=== PATIENT | male | born 1995 | race African-American/Black ===

== ENCOUNTER 2017-06-03 15:25 | Emergency (ER) | payer OTHER ==
[~2017-06-03] VITALS: Ht 182.9 cm; Wt 59.0 kg
[~2017-06-03 15:25] MED LIST: ALBUTEROL SULF8.5 GM INH; AZITHROMYCIN250 MG ORAL; BENADRYL A12.5 MG/5 ORAL; IBUPROFEN600 MG ORAL; PREDNISOLO15 MG/5 M1 PO; PROAIR HFA8.5 GM INH; VICODIN 5-5001 EACH ORAL
[2017-06-03 16:00] VITALS: BP 111/67
--- NOTE | 2017-06-03 16:03 | Emergency Room Report ---
History of Present Illness General Chief Complaint: Back Pain-No Injury Source: Patient Present Illness HPI 21 YO Male presents to the ED c/o right upper back and right side neck pain 9/ 10 in severity x 1 month. pt. is right hand dominant. pt. states pain is tight in nature. pt. denies appreciable trauma or fall. pt. states tenderness to the touch. pt states some times he will have similar pain in the upper left side of the back.Pt states his pain is both intermittent and constant lasting several days. pt. denies previous evaluation of his symptoms. denies pmhx. denies fevers, chills, rashes, or recent illness. Denies numbness tingling or loss of sensation or gross motor movements of the extremities, incontinence of bowel or bladder. Denies CP, Palpitations, LOC, AMS, dizziness, Changes in Vision, Sensation, paresthesias, or a sudden severe headache. Allergies: Coded Allergies: IBUPROFEN (Verified Allergy, Severe, Hives, 06/03/17) Patient History Past Medical History: see triage record Past Surgical History: none Pertinent Family History: none Immunizations: UTD Reviewed Nursing Documentation: PMH: Agreed, PSxH: Agreed Nursing Documentation-PMH Past Medical History: No History, Except For Hx Asthma: Yes Review of Systems All Other Systems: negative except mentioned in HPI Physical Exam Vital Signs Date Time Temp Pulse Resp B/P Pulse Ox O2 Delivery O2 Flow Rate FiO2 06/03/17 15:38 98.2 75 18 111/67 98 Room Air Sp02 EP Interpretation: reviewed, normal General Appearance: no apparent distress, alert, GCS 15, non-toxic Head: normocephalic, atraumatic Eyes: bilateral eye PERRL, bilateral eye normal inspection ENT: hearing grossly normal, normal pharynx, no angioedema, normal voice Neck: full range of motion, no bony tend, supple/symm/no masses, tender lateral - right lateral trapezius tenderness, no midline spinous process tenderness or obvious deformity. no bruises. Respiratory: lungs clear, normal breath sounds, speaking full sentences Cardiovascular #1: regular rate, rhythm Musculoskeletal: back normal, gait/station normal, normal range of motion, non- tender, tender - right lateral trapezius tenderness and thoracic paraspinal ttp , no midline spinous process tenderness or obvious deformity. no bruises. erythema or increased temperature to palpation, pt. has FROM of back , neck and right shoulder no muscular weakness. Neurologic: alert, oriented x3, responsive, motor strength/tone normal, sensory intact, speech normal Psychiatric: judgement/insight normal, memory normal, mood/affect normal Skin: normal color, no rash, warm/dry, well hydrated Medical Decision Making PA Attestation Dr. Diaz is my supervising Physician whom patient management has been discussed with. Diagnostic Impression: Primary Impression: Upper back pain on right side Additional Impression: Muscle strain ER Course 21 YO Male presents to the ED c/o right upper back and right side neck pain 9/ 10 in severity x 1 month. pt. is right hand dominant. pt. states pain is tight in nature. pt. denies appreciable trauma or fall. pt. states tenderness to the touch. pt states some times he will have similar pain in the upper left side of the back.Pt states his pain is both intermittent and constant lasting several days. pt. denies previous evaluation of his symptoms. denies pmhx. denies fevers, chills, rashes, or recent illness. Denies numbness tingling or loss of sensation or gross motor movements of the extremities, incontinence of bowel or bladder. Denies CP, Palpitations, LOC, AMS, dizziness, Changes in Vision, Sensation, paresthesias, or a sudden severe headache. Ddx considered but are not limited to Fracture, dislocation, contusion, Sprain/ Strain/Spasm. Vital signs: are WNL, pt. is afebrile H&PE are most consistent with muscular injury/ pain primarily in the right trapezius, no bony ttp on PE to warrant x-ray imaging at this time. pt. does not have weakness. I do not suspect an emergent condition at this time given HPI and pt. physical exam. ORDERS: non required at this time. --d/w pt. that he will be d/c with conservative treatment, and to follow up with a primary care provider for further evaluation. d/w pt. that if symptoms worsen or new symptoms appear to return to ED. otherwise with current presentation he is stable for close out patient follow up. DISCHARGE: At this time pt. is stable for d/c to home. Will provide printed patient care instructions, and any necessary prescriptions. Care plan and follow up instructions have been discussed with the patient prior to discharge. Last Vital Signs Date Time Temp Pulse Resp B/P Pulse Ox O2 Delivery O2 Flow Rate FiO2 06/03/17 15:38 98.2 75 18 111/67 98 Room Air Disposition: HOME, SELF-CARE Condition: Stable Scripts Cyclobenzaprine Hcl* (FLEXERIL*) 10 Mg Tablet 10 MG ORAL THREE TIMES A DAY for 7 Days, #21 TAB Prov: Terese Devlin 06/03/17 Acetaminophen* (TYLENOL EXTRA STRENGTH*) 500 Mg Tablet 500 MG ORAL Q6H, #30 TAB 0 Refills Prov: Terese Devlin 06/03/17 Patient Instructions: Muscle Pain, Adult Additional Instructions: Take medications as directed. Follow up with a Primary Care Provider in 3-5 days, even if your symptoms have resolved. --Please review list of primary care clinics, if you do not already have a primary care provider Return sooner to ED if new symptoms occur, or current symptoms become worse. Do not drink alcohol, drive, or operate heavy machinery while taking muscle relaxer as this may cause drowsiness. - Please note that this Emergency Department Report was dictated using [employer] maker technology software, occasionally this can lead to erroneous entry secondary to interpretation by the dictation equipment. Terese Devlin Jun 03, 2017 16:03
[2017-06-03] MEDS ORDERED: CYCLOBENZAPRINE10 MG ORAL (16:05)
[2017-06-03] MEDS ORDERED: TYLENOL EXTRA500 MG ORAL (16:05)
[2017-06-03 16:13] VITALS: BP 111/67
== END 2017-06-03 16:15 | disposition home or self-care (01) ==
LOC: EMR 15:58
DX: M54.6 Pain in thoracic spine (principal); J45.909 Unspecified asthma, uncomplicated; Z88.6 Allergy status to analgesic agent; T14.8 Other injury of unspecified body region; X58.XXXA Exposure to other specified factors, initial encounter; Y92.9 Unspecified place or not applicable
CPT/HCPCS: 99284

== ENCOUNTER 2017-09-22 19:03 | Emergency (ER) | payer SELFPAY ==
[~2017-09-22] VITALS: Ht 182.9 cm; Wt 59.0 kg
[~2017-09-22 19:03] MED LIST changes: +CYCLOBENZAPRINE10 MG ORAL; +TYLENOL EXTRA500 MG ORAL
[2017-09-22] MEDS ORDERED: NKM (19:15)
[2017-09-22 19:21] VITALS: BP 110/72
[2017-09-22] MEDS ORDERED: Tylenol #3 tab (300mg/30mg) ORAL ONE (19:45)
[2017-09-22] MEDS ORDERED: SOMA350 MG PO (19:56)
[2017-09-22] MEDS ORDERED: ACETAMINOPHEN-1 EAC1 ORAL (19:56)
[2017-09-22 20:02] VITALS: BP 110/72
--- NOTE | 2017-09-24 06:47 | Emergency Room Report ---
History of Present Illness General Chief Complaint: Back Pain-No Injury Source: Patient Present Illness HPI 21-year-old male presents ED complaining of right shoulder pain x2 months. Denies injury. Notes pain in the mid clavicular area radiating down to the scapula. To 10, throbbing, nonradiating. States it is difficult to sleep. Was seen here 2 months ago for same presentation; was diagnosed as muscle strain and was prescribed anti-inflammatories and muscle relaxer. States the medications did not help. Patient continues to have pain. Has difficulty lifting his shoulder over his head. Denies any numbness or tingling sensation. Denies any motor weakness. No other aggravating relieving factors. Denies any other associated symptoms Allergies: Coded Allergies: IBUPROFEN (Verified Allergy, Severe, Hives, 06/03/17) Patient History Past Medical History: none Past Surgical History: none Pertinent Family History: none Social History: Denies: smoking, alcohol use, drug use Immunizations: UTD Reviewed Nursing Documentation: PMH: Agreed, PSxH: Agreed Nursing Documentation-PMH Past Medical History: No History, Except For Hx Asthma: Yes Review of Systems All Other Systems: negative except mentioned in HPI Physical Exam Vital Signs Date Time Temp Pulse Resp B/P (MAP) Pulse Ox O2 Delivery O2 Flow Rate FiO2 09/22/17 19:13 98.2 74 14 110/72 98 Room Air Sp02 EP Interpretation: reviewed, normal General Appearance: no apparent distress, alert, GCS 15, non-toxic Head: normocephalic, atraumatic Eyes: bilateral eye normal inspection, bilateral eye PERRL ENT: hearing grossly normal, normal pharynx, no angioedema, normal voice Neck: full range of motion, no bony tend, supple/symm/no masses Respiratory: chest non-tender, lungs clear, normal breath sounds, speaking full sentences Cardiovascular #1: regular rate, rhythm, no edema Gastrointestinal: normal inspection Rectal: deferred Genitourinary: no CVA tenderness Musculoskeletal: normal range of motion - R shoulder, tender - TTP over R trapezius. no erythema/induration/swelling Neurologic: alert, oriented x3, responsive, motor strength/tone normal, sensory intact, speech normal Psychiatric: judgement/insight normal, memory normal, mood/affect normal, no suicidal/homicidal ideation Skin: normal color, no rash, warm/dry, well hydrated Lymphatic: no adenopathy Medical Decision Making Diagnostic Impression: Primary Impression: Trapezius strain Qualified Codes: S46.811D - Strain of other muscles, fascia and tendons at shoulder and upper arm level, right arm, subsequent encounter ER Course 21-year-old male presents ED complaining of pain over the right upper back x2 months. No trauma Differential, fracture, dislocation, strain, contusion Patient placed on stretcher. After initial history physical exam reveals a young male in no acute distress. There is tenderness to palpation over the right trapezius muscle which radiates down to his shoulder blade. No induration or erythema. No clavicular tenderness or deformity. Full range of motion in the right shoulder. Presentation consistent with muscle strain Agreed with initial assessment on last visit. However patient continues to have pain. We'll prescribe Tylenol No. 3 and soma. Discussed case with patient and mother. If symptoms continue to persist patient recommended to followup with orthopedist Diagnosis-trapezius strain Stable and discharged to home with prescription for, #3 and soma. Heating pad, moderate physical activity. Followup with PMD/orthopedics. Return to ED if symptoms recur or worsen Last Vital Signs Date Time Temp Pulse Resp B/P (MAP) Pulse Ox O2 Delivery O2 Flow Rate FiO2 09/22/17 20:02 98.2 14 110/72 98 Room Air 09/22/17 19:13 74 Status: improved Disposition: HOME, SELF-CARE Condition: Stable Scripts Carisoprodol* (SOMA*) 350 Mg Tablet 350 MG PO Q6H, #20 TAB Prov: KISHA SAHNI M.D. 09/22/17 Acetaminophen With Codeine (T#3) (TYLENOL #3 TAB*) Y Tab 1 TAB ORAL Q8H Y for For Pain, #20 TAB Prov: KISHA SAHNI M.D. 09/22/17 Referrals: NOT CHOSEN IPA/,REFERRING (PCP) Patient Instructions: Muscle Strain, [id number] KISHA SAHNI M.D. Sep 24, 2017 06:47
== END 2017-09-22 20:02 | disposition home or self-care (01) ==
LOC: EMR 19:30
DX: S46.811A Strain of other muscles, fascia and tendons at shoulder and upper arm level, right arm, initial encounter (principal); X58.XXXA Exposure to other specified factors, initial encounter; Y92.009 Unspecified place in unspecified non-institutional (private) residence as the place of occurrence of the external cause; J45.909 Unspecified asthma, uncomplicated; Z88.6 Allergy status to analgesic agent
CPT/HCPCS: 99283